=== PATIENT | male | born 1980 | race Caucasian/White ===

== ENCOUNTER 2023-11-26 01:08 | Outpatient (CLI) | payer OTHER, SELFPAY ==
--- OUTSIDE RECORDS SUMMARY | 2023-11-26 01:42 | XMS_ITS | Encounter Summary ---
Author Organization Formerly [facility] [place] [address] Care Team Providers Care Tunnel Elastic Operator Zigzag Name Role Phone Sharron Keen APRN Primary Care Provider [phone] Reason for Visit * Reason Comments Allergy Testing * Consultation (Routine) - Closed Specialty Diagnoses / Procedures Referred By Contmarianna t Referred To Contact Allergy Diagnoses anaphylaxis, allergic reaction to soy? Niecy Navarrete, BAG LOADER [address] [place] [address] [facility] [address] [place] [address] Referral ID Status Reason Start Date Expiration Date V isits Requested Visits Authorized [id number] Closed [facility] 03/03/2016 03/03/2017 1 1 Encounter Details Date Type Department Care Team (Late st Contact Info) Description 03/13/2016 4:00 PM EST [place] [address] Radha Dowling MD [facility] [address] [place] [address] Oral allergy syndrome, initial encounter; Allergic rhinitis, unspecified allergic rhinitis trigger, unspecified rhinitis seasonality; Diarrhea, unspecified type Social History Tobacco Use Types Packs/Day Years Used Date Smoking Tobacco: Never Smokeless Tobacco: Never Alcohol Use Standard Drinks/Week Comments No 0 (1 standard drink = 0.6 oz pur e alcohol) Sex and Gender Information Value Date Recorded Sex Assigned at Not on file Gender Identity Not on file Sexual Orientation Not on file documented as of this encounter Last Filed Vital Signs Vital Sign Reading Time Taken Comments Blood Pressure 123/82 03/13/2016 3:37 PM EST Pulse 75 03/13/2016 3:37 PM EST Temperature - - Respiratory Rate 19 03/13/2016 3:37 PM EST Oxygen Saturation - - Inhaled Oxygen Concentration - - Weight 60.3 kg (133 lb) 03/13/2016 3:37 PM EST Height 175.3 cm (5' 9) 03/13/2016 3:37 PM EST Body Mass Index 19.64 03/13/2016 3:37 PM EST documented in this encounter Patient Instructions * Patient Instructions* Radha Dowling MD - 03/13/2016 4:00 PM EST Allergy tests positive to orchard grass, owen grass, birch. Food tests all negative but results to shrimp and almond were borderline positive. Avoid for now and carry epipen. Recommend getting lab tests to confirm results - if negative to shrimp consider doing food challenge in the office to confirm you are not allergic. If almond negative, I suspect this is oral allergy syndrome. Oral allergy syndrome: mild form of food allergy with raw foods that cross-react with pollen. Rarely causes systemic reaction and most people can tolerate the cooked version of the food because it breaks down the allergenic protein. documented in this encounter Progress Notes * Radha Dowling MD - 03/13/2016 4:00 PM EST CC: allergies HPI: Michael Gray is a 35 y.o. male with a PMH of gastropathy presenting for evaluation of allergies at the request of Niecy Navarrete. Patient reports that he has had severe GI symptoms such as diarrhea and abdominal pain for about 1 month and has lost [address] scan was negative, and endoscopy only showed gastropathy in his stomach, per the patient. He is concerned about food allergy. He tried cutting out gluten and did not notice a difference for the first 10 days, but then started to feel better after that, but reports that he also started reflux medications (omeprazole) at the same time, which may have confounded his elimination diet. He is also concerned about soy. He reports that he had a soy-coconut breakfast bar and experienced an itchy throat and burning after eating it, and then another time had soy sauce and experienced an itchy throat and burning after eating that. The soy sauce reaction happened about 10 days ago, and it happened immediately after eating it. He has had similar symptoms, however, with bad acid reflux so is not sure if the soy sauce just gave him reflux. He did not have any rash when he ate the soy. He also admits to diarrhea and abdominal pain with shellfish 30-60 minutes after eating it, and on one occasion, felt that his throat was tight, but was not sure if it was due to anxiety. He has avoided shellfish since high school because of this reaction. Has not had a rash with shellfish. He admits to occasional mild scratchy throat with almonds when raw but no problems when they are roasted or cooked. He also has a scratchy throat with apple when it is raw but no problems with cooked apple. He has not had hives, rash, wheeze, shortness of breath, or lip swelling with any foods. He denies a history of asthma or eczema. He admits to spring seasonal allergies, characterized by dry eyes and sneezing. Review of systems is per HPI. Also admits to ocular migraines, diagnosed this February; itchy mouth; itchy throat; heartburn; reflux; nausea; abdominal pain; diarrhea; constipation; kidney stones; headache; and anxiety. ROS otherwise negative. Past Medical History Diagnosis Date ??? Gastropathy ??? Ocular migraine Past Surgical History Procedure Laterality Date ??? Pro upper gi endoscopy, biopsy N/A 03/05/2016 EGD WITH BIOPSY (WRVU 2.49) performed by Matthew Diaz MD at [facility] ENDOSCOPY Outpatient Prescriptions Marked as Taking for the 03/13/16 encounter (Office Visit) with Radha Dowling MD Medication Sig Dispense Refill ??? EPINEPHrine 0.3 mg/0.3 mL Auto-Injector Inject 0.3 mg into the muscle once. ??? omeprazole (PRILOSEC) 40 mg Capsule, Delayed Release(E.C.) Take 40 mg by mouth daily. ??? LORazepam (ATIVAN) 1 mg Tablet Take 1 mg by mouth every 6 hours as needed for Anxiety. ??? calcium carbonate (TUMS) 200 mg calcium (500 mg) Tablet, Chewable Take 1 tablet by mouth daily. ??? FAMOTIDINE/CA CARB/MAG HYDROX (PEPCID COMPLETE ORAL) Take by mouth daily as needed. Allergies Allergen Reactions ??? Shellfish Derived Anaphylaxis ??? Soy Anaphylaxis ??? Gluten Other (See Comments) GI Stress per pt Family History Problem Relation Age of Onset ??? Allergic Rhinitis Father ??? Allergic Rhinitis Sister Social History Social History ??? Marital status: Spouse name: N/A ??? Number of children: N/A ??? Years of education: N/A Occupational History ??? Not on file. Social History Main Topics ??? Smoking status: Never Smoker ??? Smokeless tobacco: Never Used ??? Alcohol use No ??? Drug use: No ??? Sexual activity: Not on file Other Topics Concern ??? 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 There is no central a/c. There is not a woodstove. The patient has seen no pests around the home. There is known mold or mildew in bathroom. The patient does not live on a farm. The patient is not exposed to farm animals. Pets: 1 cat PHYSICAL EXAM: BP 123/82 Pulse 75 Resp 19 Ht 175.3 cm (5' 9) Wt 60.3 kg (133 lb) BMI 19.64 kg/m2 Gen: AAOx3, no acute distress HEENT: Tympanic membranes clear, no lesions, erythema, or drainage. Conjunctiva not injected. Nasalpassages show pale, enlarged turbinates bilaterally. OP clear without erythema or cobblestoning. NECK: supple, no lymphadenopathy CVS: RRR, no m/r/g LUNGS: CTAB, no wheezing or rales ABD: soft, non-tender, non-distended SKIN: no rashes EXTREMITIES: warm and well-perfused, no edema SKIN TESTING: Histamine (7, 23) Saline (0, 3) Glycerine (2, 3) Orchard grass (14, 35) - pos Owen grass (18, 35) - pos Birch (18, 45) - pos Mugwort (-) Ragweed (-) Soy (-) Wheat (-) [place] (4, 9) - borderline but negative Clam (-) Crab (-) Lobster (-) Oyster (-) Scallop (-) Shrimp (3, 11) - borderline but negative Apple (-) Please see scanned document for full details on sizes of wheals and flares if not indicated above. RECORD REVIEW: Prior lab tests show that in January of 2016, he had a normal white count of 5.29; a normal hematocrit of 43.4; and a normal platelet count of 206,000. His differential was within normal limits. In February of 2016, his white count was mildly low at 4.37, and he had normal hematocrit and platelets and differential at that time, as well. He has had a normal prothrombin time, INR, and D-dimer. Urinalysis was unremarkable. Helicobacter pylori antigen in his feces was negative. CMP in January 2016 showed mildly elevated glucose of 102, mildly elevated TSH of 3.93; otherwise normal BMP. His cardiac troponins were negative in February. A report CMP actually showed no abnormalities, including normal liver function. He had a tTG-IgA that was negative and a tTG-IgG that was within normal limits. ASSESSMENT AND PLAN: 35 y.o. male with one month of GI symptoms and weight loss with allergic rhinitis concerned about food allergy. Specific food reactions include itchy throat with soy, diarrhea/abd pain and ? Throat tightness with shrimp, and scratchy throat with raw but not cooked almonds and apples. He has not hadhives, rash, wheeze, shortness of breath, or lip swelling with any foods. Allergy tests positive toorchard grass, owen grass, and birch tree and negative to foods, though almond and shrimp were borderline because they had a large flare, but the wheal was not significant. I suspect his reaction to soy, almond, and apple are due to oral allergy syndrome from cross-reactivity with pollen, since he has quite large reactions to the relevant pollens. Shrimp reaction is hard to say - isolated GI symptoms are rarely due to food allergy and he is not sure about the throat symptoms. I sent sIgE to almond and shrimp to verify negative reactions and patient requested confirming the others, too, so I will send these for peace of mind. Recommended: - avoid all problem foods for now and based on results will decide on what to reintroduce. Foods will be reintroduced one week at a time so if his GI symptoms flare up he will know the trigger. This would be an intolerance rather than an allergy - pt will carry epipen due to reported throat symptoms with shrimp. If sIgE negative to shrimp would recommend food challenge in the office due to reported possible throat symptoms. - negative sIgE with other foods is consistent with oral allergy syndrome, though it is possible tohave positive sIgE to foods with OAS, which is largely a clinical diagnosis. Essentially, in OAS, OK to eat cooked version of foods that don't cause problems and avoid raw forms. Rare for this to cause serious reactions ADDENDUM: Shrimp, lobster, crab, clam, scallop, oyster, soybean, almond, wheat IgE all negative. Apple pending at the time of note signing. Radha Dowling MD documented in this encounter Plan of Treatment Not on file documented as of this encounter Procedures Procedure Name Priority Date/Time Associated Diagnosis Comments ALLERGY SCAN 03/26/2016 12:00 AM EST LOBSTER IGE Routine 03/13/2016 5:09 PM EST Oral allergy syndrome, initial encounter ALMOND IGE Routine 03/13/2016 5:09 PM EST Oral allergy syndrome, initial encounter CLAMS IGE Routine 03/13/2016 5:09 PM EST Oral allergy syndrome, initial encounter SHRIMP IGE Routine 03/13/2016 5:09 PM EST Oral allergy syndrome, initial encounter APPLE IGE Routine 03/13/2016 5:09 PM EST Oral allergy syndrome, initial encounter WHEAT IGE Routine 03/13/2016 5:09 PM EST Oral allergy syndrome, initial encounter SOYBEAN IGE Routine 03/13/2016 5:09 PM EST Oral allergy syndrome, initial encounter SCALLOP IGE Routine 03/13/2016 5:09 PM EST Oral allergy syndrome, initial encounter OYSTER IGE Routine 03/13/2016 5:09 PM EST Oral allergy syndrome, initial encounter CRAB IGE Routine 03/13/2016 5:09 PM EST Oral allergy syndrome, initial encounter documented in this encounter Results * SCAN DOC: ALLERGY (03/26/2016 12:00 AM EST) Scanning Provider MEDIA MGR SCAN EXT O RDR/RSLT * Wheat IgE (03/13/2016 5:09 PM EST) Wheat, IgE <0.35 kU/L [facility] Comment: Reference Ranges <0.35 kU/L Class 0: ??Normal 0.35-0.69 kU/L Class 1: ??Low level of allergy, indicative of ongoing sensitization 0.70-3.49 kU/L Class 2: ??Moderate level of allergy, indicative of stronger ongoing sensitization 3.50-17.49 kU/L Class 3: ??High level of allergy, indicative of high level sensitization 17.5-49.9 kU/L Class 4: Very high level of allergy, indicative of very high level sensitization 50.0-100 kU/L Class 5: Very high level of allergy, indicative of very high level sensitization Blood specimen (specimen) 03/13/2016 5:09 PM EST 03/16/2016 8:27 AM EST Narrative Resulting Agency Comment Spec In Lab Radha Dowling MD IMMUNOLOGY ORDERABLE S [facility] [place] [address] * Apple IgE (03/13/2016 5:09 PM EST) Apple, IgE 0.54 kU/L [facility] Comment: Class 1 (Equivocal 0.35-0.69) Test Performed by: [place] [address] [employer] Boring Machine Feeder: Brad Giordano II, M.D., Ph.D. Blood specimen (specimen) 03/13/2016 5:09 PM EST 03/17/2016 8:59 AM EST Narrative Resulting Agency Comment Spec In Lab Radha Dowling MD IMMUNOLOGY ORDERABLE S Performing Organization Address City/[facility]/ZIP Co de Phone Number [facility] [place] [address] * Scallop IgE (03/13/2016 5:09 PM EST) Scallop, IgE <0.35 kU/L [facility] Comment: Reference Ranges <0.35 kU/L Class 0: ??Normal 0.35-0.69 kU/L Class 1: ??Low level of allergy, indicative of ongoing sensitization 0.70-3.49 kU/L Class 2: ??Moderate level of allergy, indicative of stronger ongoing sensitization 3.50-17.49 kU/L Class 3: ??High level of allergy, indicative of high level sensitization 17.5-49.9 kU/L Class 4: Very high level of allergy, indicative of very high level sensitization 50.0-100 kU/L Class 5: Very high level of allergy, indicative of very high level sensitization Blood specimen (specimen) 03/13/2016 5:09 PM EST 03/16/2016 8:27 AM EST Narrative Resulting Agency Comment Spec In Lab Radha Dowling MD IMMUNOLOGY ORDERABLE S Performing Organization Address City/[facility]/ZIP Co de Phone Number [facility] [place] [address] * Oyster IgE (03/13/2016 5:09 PM EST) Oyster, IgE <0.35 kU/L [facility] Comment: Reference Ranges <0.35 kU/L Class 0: ??Normal 0.35-0.69 kU/L Class 1: ??Low level of allergy, indicative of ongoing sensitization 0.70-3.49 kU/L Class 2: ??Moderate level of allergy, indicative of stronger ongoing sensitization 3.50-17.49 kU/L Class 3: ??High level of allergy, indicative of high level sensitization 17.5-49.9 kU/L Class 4: Very high level of allergy, indicative of very high level sensitization 50.0-100 kU/L Class 5: Very high level of allergy, indicative of very high level sensitization Blood specimen (specimen) 03/13/2016 5:09 PM EST 03/16/2016 8:27 AM EST Narrative Resulting Agency Comment Spec In Lab Radha Dowling MD IMMUNOLOGY ORDERABLE S Performing Organization Address [facility]/ZIP Co de Phone Number [facility] [place] [address] * Rachel IgE (03/13/2016 5:09 PM EST) Pathologist Enid Ramos, IgE <0.35 kU/L [facility] Comment: Reference Ranges <0.35 kU/L Class 0: ??Normal 0.35-0.69 kU/L Class 1: ??Low level of allergy, indicative of ongoing sensitization 0.70-3.49 kU/L Class 2: ??Moderate level of allergy, indicative of stronger ongoing sensitization 3.50-17.49 kU/L Class 3: ??High level of allergy, indicative of high level sensitization 17.5-49.9 kU/L Class 4: Very high level of allergy, indicative of very high level sensitization 50.0-100 kU/L Class 5: Very high level of allergy, indicative of very high level sensitization Blood specimen (specimen) 03/13/2016 5:09 PM EST 03/16/2016 8:27 AM EST Narrative Resulting Agency Comment Spec In Lab Radha Dowling MD IMMUNOLOGY ORDERABLE S Performing Organization Address City/[facility]/ZIP Co de Phone Number [facility] [place] [address] * Crab IgE (03/13/2016 5:09 PM EST) Crab, IgE <0.35 kU/L [facility] Comment: Reference Ranges <0.35 kU/L Class 0: ??Normal 0.35-0.69 kU/L Class 1: ??Low level of allergy, indicative of ongoing sensitization 0.70-3.49 kU/L Class 2: ??Moderate level of allergy, indicative of stronger ongoing sensitization 3.50-17.49 kU/L Class 3: ??High level of allergy, indicative of high level sensitization 17.5-49.9 kU/L Class 4: Very high level of allergy, indicative of very high level sensitization 50.0-100 kU/L Class 5: Very high level of allergy, indicative of very high level sensitization Blood specimen (specimen) 03/13/2016 5:09 PM EST 03/16/2016 8:27 AM EST Narrative Resulting Agency Comment Spec In Lab Radha Dowling MD IMMUNOLOGY ORDERABLE S [facility] [place] [phone] * Clams IgE (03/13/2016 5:09 PM EST) Pathologist [facility] Clam, IgE <0.35 kU/L [facility] Comment: Reference Ranges <0.35 kU/L Class 0: ??Normal 0.35-0.69 kU/L Class 1: ??Low level of allergy, indicative of ongoing sensitization 0.70-3.49 kU/L Class 2: ??Moderate level of allergy, indicative of stronger ongoing sensitization 3.50-17.49 kU/L Class 3: ??High level of allergy, indicative of high level sensitization 17.5-49.9 kU/L Class 4: Very high level of allergy, indicative of very high level sensitization 50.0-100 kU/L Class 5: Very high level of allergy, indicative of very high level sensitization Blood specimen (specimen) 03/13/2016 5:09 PM EST 03/16/2016 8:27 AM EST Narrative Resulting Agency Comment Spec In Lab Radha Dowling MD IMMUNOLOGY ORDERABLE S [facility] [place] [address] * Soybean IgE (03/13/2016 5:09 PM EST) Soybean, IgE <0.35 kU/L [facility] Comment: Reference Ranges <0.35 kU/L Class 0: ??Normal 0.35-0.69 kU/L Class 1: ??Low level of allergy, indicative of ongoing sensitization 0.70-3.49 kU/L Class 2: ??Moderate level of allergy, indicative of stronger ongoing sensitization 3.50-17.49 kU/L Class 3: ??High level of allergy, indicative of high level sensitization 17.5-49.9 kU/L Class 4: Very high level of allergy, indicative of very high level sensitization 50.0-100 kU/L Class 5: Very high level of allergy, indicative of very high level sensitization Blood specimen (specimen) 03/13/2016 5:09 PM EST 03/16/2016 8:27 AM EST Narrative Resulting Agency Comment Spec In Lab Radha Dowling MD IMMUNOLOGY ORDERABLE S [facility] [place] [address] * [place] IgE (03/13/2016 5:09 PM EST) [place], IgE <0.35 kU/L [facility] Comment: Reference Ranges <0.35 kU/L Class 0: ??Normal 0.35-0.69 kU/L Class 1: ??Low level of allergy, indicative of ongoing sensitization 0.70-3.49 kU/L Class 2: ??Moderate level of allergy, indicative of stronger ongoing sensitization 3.50-17.49 kU/L Class 3: ??High level of allergy, indicative of high level sensitization 17.5-49.9 kU/L Class 4: Very high level of allergy, indicative of very high level sensitization 50.0-100 kU/L Class 5: Very high level of allergy, indicative of very high level sensitization Blood specimen (specimen) 03/13/2016 5:09 PM EST 03/16/2016 8:27 AM EST Narrative Resulting Agency Comment Spec In Lab Radha Dowling MD IMMUNOLOGY ORDERABLE S Performing Organization Address City/[facility]/ZIP Co de Phone Number [facility] [place] [address] * Shrimp IgE (03/13/2016 5:09 PM EST) Shrimp, IgE <0.35 kU/L [facility] Comment: Reference Ranges <0.35 kU/L Class 0: ??Normal 0.35-0.69 kU/L Class 1: ??Low level of allergy, indicative of ongoing sensitization 0.70-3.49 kU/L Class 2: ??Moderate level of allergy, indicative of stronger ongoing sensitization 3.50-17.49 kU/L Class 3: ??High level of allergy, indicative of high level sensitization 17.5-49.9 kU/L Class 4: Very high level of allergy, indicative of very high level sensitization 50.0-100 kU/L Class 5: Very high level of allergy, indicative of very high level sensitization Blood specimen (specimen) 03/13/2016 5:09 PM EST 03/16/2016 8:27 AM EST Narrative Resulting Agency Comment Spec In Lab Radha Dowling MD IMMUNOLOGY ORDERABLE S Performing Organization Address City/[facility]/ZIP Co de Phone Number [facility] [place] [address] documented in this encounter Visit Diagnoses Diagnosis Oral allergy syndrome, initial encounter Allergic rhinitis, unspecified allergic rhinitis trigger, unspecified rhinitis seasonality Diarrhea, unspecified type documented in this encounter Care Teams Tunnel Elastic Operator Zigzag Relationship Specialty Start Date End Date Sharron Keen, BAG LOADER PCP - General Family Medicine 03/03/16 documented as of this encounter
--- OUTSIDE RECORDS SUMMARY | 2023-11-26 01:42 | XMS_ITS | Encounter Summary ---
[facility] Organization [facility] [place] [address] Care Team Providers Care Credit Control Officer Name Role Phone Sharron Keen APRN Primary Care Provider [phone] Reason for Visit * Reason Comments Skin Check Encounter Details Date Type Department Care Team (Late st Contact Info) Description 05/14/2017 3:30 PM EST Office Visit Dermatology at [address] [phone] Kyrie Gutierrez MD [address] [facility], [facility] [place] [address] Nevus Social History Tobacco Use Types Packs/Day Years Used Date Smoking Tobacco: Never Smokeless Tobacco: Never Alcohol Use Standard Drinks/Week Comments No 0 (1 standard drink = 0.6 oz pur e alcohol) Sex and Gender Information Value Date Recorded Sex Assigned at Not on file Gender Identity Not on file Sexual Orientation Not on file documented as of this encounter Progress Notes * Kyrie Gutierrez MD - 05/14/2017 3:30 PM EST Problem: 1. Skin checkup 2. Exercise-induced urticaria Michael is a 36-year-old gentleman who is noted and mole the present on his left medial knee for atleast 2 years. Recently been getting a little bit vamper centrally. He like to have this checked. He is not aware of any personal or family history of skin cancer melanoma. He does have a general skin check as well. Further he notes that if he is exercising it starts to get hot he will developed first red patchiness on his body and then actually he continues to exercise he will develop actual hiatus. His daughter starting to develop the same problem. The patient is seen in consultation today for Sharron Keen APRN Physical examination reveals a pleasant 36-year-old woman with red hair fair skin and relative paucity of of nevi. He has a benign 6 mm L4-5 millimeter junctional melanocytic nevus on the left medialknee which is light terrazas pigmentation and is developing centrally a 3 mm papule consistent with a com pound versus intradermal nevus component. This appears to be in a benign change in the patient was reassured about it. Careful examination of the patient's scalp his face his neck his chest is back his hands and forearms thighs and calves his feet is otherwise unremarkable and benign. He does have a few small junctional melanocytic nevi in the 2-3 mm diameter range on the forearms and arms bilaterally. He has no urticaria today Assessment plan: Benign skin examination 1. Patient reassured about benign skin examination 2. Reassured about this benign nevi 3. Reinforced sun with precautions use of SPF 30-45 sunscreen and wearing a broad brimmed hat when out of doors. Patient is already trying to do this. Physical urticaria, exercise induced 1. Discussed the option of cetirizine (Zyrtec), versus loratadine (Claritin), choose one and take 10 mg an hour or 2 before planned exercise/workouts in order to prevent this phenomenon. 2. Discussed the physiology/etiology of the problem. Reassured him about its overall benign nature. Cc: Sharron Keen APRN documented in this encounter Plan of Treatment Not on file documented as of this encounter Visit Diagnoses Diagnosis Nevus Benign neoplasm of skin, site unspecified documented in this encounter Care Teams Credit Control Officer Relationship Specialty Start Date End Date Sharron Keen APRN PCP - General Family Medicine 03/03/16 documented as of this encounter
--- OUTSIDE RECORDS SUMMARY | 2023-11-26 01:42 | XMS_ITS | Encounter Summary ---
Author Organization [facility] [place] [address] Care Team Providers Care Volunteer Services Supervisor Name Role Phone Sharron Keen APRN Primary Care Provider [phone] Encounter Details Date Type Department Care Team (Late st Contact Info) Description 06/24/2017 Orders [place] [address] Bowen Farmer [facility] [address] Bloated abdomen Social History Tobacco Use Types Packs/Day Years Used Date Smoking Tobacco: Never Smokeless Tobacco: Never Alcohol Use Standard Drinks/Week Comments No 0 (1 standard drink = 0.6 oz pur e alcohol) Sex and Gender Information Value Date Recorded Sex Assigned at Not on file Gender Identity Not on file Sexual Orientation Not on file documented as of this encounter Plan of Treatment Not on file documented as of this encounter Visit Diagnoses Diagnosis Bloated abdomen Flatulence, eructation, and gas pain documented in this encounter Care Teams Volunteer Services Supervisor Relationship Specialty Start Date End Date Sharron Keen APRN PCP - General Family Medicine 03/03/16 documented as of this encounter
--- OUTSIDE RECORDS SUMMARY | 2023-11-26 01:42 | XMS_ITS | Encounter Summary ---
Author Organization [facility] [place] [address] Care Team Providers Care Grader Patrol Name Role Phone Sharron Keen APRN Primary Care Provider [phone] Encounter Details Date Type Department Care Team (Late st Contact Info) Description 03/05/2016 Orders [place] [address] Matthew Diaz MD [facility] [place] [address] Abnormal celiac antibody panel Social History Tobacco Use Types Packs/Day Years Used Date Smoking Tobacco: Never Alcohol Use Standard Drinks/Week Comments No 0 (1 standard drink = 0.6 oz pur e alcohol) Sex and Gender Information Value Date Recorded Sex Assigned at Not on file Gender Identity Not on file Sexual Orientation Not on file documented as of this encounter Plan of Treatment Not on file documented as of this encounter Results * Tissue transglutaminase, IgA (03/05/2016 10:52 AM EST) TTG IgA Ab 1.5 0.1 - 10.0 u/ml [facility] Comment: Negative = <7 U/mL Equivocal = 7-10 U/mL Positive = >10 U/mL Blood specimen (specimen) 03/05/2016 10:52 AM EST 03/05/2016 1:32 PM EST Narrative Resulting Agency Comment Spec In Lab Matthew Diaz MD IMMUNOLOGY ORDERA BLES Performing Organization Address [facility] Co de Phone Number [facility] [place] [address] * (ABNORMAL) IgA (03/05/2016 10:52 AM EST) IgA 565(H) 70 - 400 mg/dL [facility] Blood specimen (specimen) 03/05/2016 10:52 AM EST 03/05/2016 10:57 AM EST Narrative Resulting Agency Comment Spec In Lab Matthew Diaz MD CHEMISTRY ORDERAB LES Performing Organization Address [facility] Co de Phone Number [facility] [place] [address] documented in this encounter Visit Diagnoses Diagnosis Abnormal celiac antibody panel Other and unspecified nonspecific immunological findings documented in this encounter Care Teams Grader Patrol Relationship Specialty Start Date End Date Sharron Keen, MAIL CARRIERS SUPERVISOR PCP - General Family Medicine 03/03/16 documented as of this encounter
--- OUTSIDE RECORDS SUMMARY | 2023-11-26 01:42 | XMS_ITS | Encounter Summary ---
Author Organization [facility] [place] [address] Care Team Providers Care Phlebotomy Specialist Name Role Phone Sharron Keen APRN Primary Care Provider [phone] Reason for Visit * Reason Comments GI Problem * Consultation (Urgent) - Closed Specialty Diagnoses / Procedures Referred By Duong dotson Referred To Contact Gastroenterology Diagnoses nausea and abdominal pain x3 weeks. workup thus far significant for elevated tissue transglutaminase igg Procedures consult Sharron Keen APRN [address] [facility] [address] [place] [address] [facility] [address] [place] [address] Referral ID Status Reason Start Date Expiration Date Visits Re quested Visits Authorized [id number] Closed 02/27/2016 02/26/2017 1 1 Encounter Details Date Type Department Care Team (Late st Contact Info) Description 07/01/2016 10:00 AM EDT Office [place] [address] Bowen Farmer APRN [facility] [place] [address] Dyspepsia Social History Tobacco Use Types Packs/Day Years [...] Sign Reading Time Taken Comments Blood Pressure 129/79 07/01/2016 10:00 AM EDT Pulse 86 07/01/2016 10:00 AM EDT Temperature - - Respiratory Rate - - Oxygen Saturation - - Inhaled Oxygen Concentration - - Weight 64.1 kg (141 lb 6.4 oz) 07/01/2016 10:00 AM EDT Height 175.3 cm (5' 9) 07/01/2016 10:00 AM EDT Body Mass Index 20.88 07/01/2016 10:00 AM EDT documented in this encounter Progress Notes * Bowen Farmer RN - 07/01/2016 10:00 AM EDT Section of Gastroenterology and Hepatology [address] [place] [address] .Michael Gray : 1980 Patient is here for further evaluation of gastrointestinal symptoms at the request of Sharron Apodaca. HPI: Pt is here for abdominal pain and nausea. Hx of gastric ulcer while in high school. Healed with protonix 40mg bid x 14 days with relief. This time tried protonix and nexium both with no relief. Now is taking Omeprazole 40mg bid for 9 weeks. His sx have improved. Prior to feeling better was unable to eat for 6 weeks and was nauseous with movement. Now he is able to eat without nausea. But still has nausea. 1-4 hours per day. No particular pattern or trigger. But was all the time. Has gained the 20 pounds he lost. But only hungry first thing inthe morning. Eats because he knows he has to eat. 02/2016 upper endoscopy: The examined esophagus was normal. ?The Z-line was regular and was found??42 cm from the ?incisors. ?Diffuse mildly erythematous mucosa without bleeding ?was found in the gastric antrum and in the prepyloric ?region of the stomach. Biopsies were taken with a ?cold forceps for histology. ?A single umbilicated lesion measuring small in ?diameter was found in the prepyloric region of the ?stomach. Biopsies were taken with a cold forceps for ?histology. ?The exam of the stomach was otherwise normal. ?Decreased folds were found in the entire duodenum. ?Biopsies for histology were taken with a cold forceps ?for for evaluation of celiac disease. ?The exam of the duodenum was otherwise normal. ? Impression: ?- Normal esophagus. ?- Z-line regular, 42 cm from the ?incisors. ?- Erythematous mucosa in the antrum ?and prepyloric region of the stomach. ?Biopsied. ?- A single lesion suspicious for ?aberrant pancreas was found in the ?stomach. Biopsied. ?- Duodenal mucosal changes seen, ?suspicious for celiac disease. ?Biopsied. Recommendation: ?- Await pathology results. ?- Check Serum IgA and TTG IgA if ?these have not been done. ?- Given high doses of sedation ?medication required with minimal ?sedation and high anxiety would ?recommend future endoscopy procedures ?with Monitored Anesthesia Care. ? Bx: Congested duodenal mucosa: - ??Duodenal mucosa, negative for diagnostic abnormality ??. B - Gastric lesion: - Antrum-type mucosa with reactive gastropathy. C - Gastric antrum and prepyloric (erythema): - ??Gastric antrum-type and body/fundic-type mucosa, negative for diagnostic ??abnormality. According to his spouse he is gassy. Tried avoiding gluten and lactose. No change in sx. No bloat or distention. No chronic nsaids. Reviewed diet. Hx of heartburn. Sx controlled with ppi bid. No dysphagia, odynophagia, vomiting, chest pain. During heightened sx he was having alternating consistency and frequency. Stools were dark. But now having regular stools daily. No blood in stool. No lower abdominal cramping or urgency. Social History Social History ??? Marital status: [...] ??? Not on file Social History Narrative Medical History: gerd Surgical History: two knee surgeries Family History: mother: gastric ulcers; Allergies Allergen Reactions ??? Shellfish Derived Anaphylaxis ??? Soy Anaphylaxis ??? Gluten Other (See Comments) GI Stress per pt Current Outpatient Prescriptions: ??? amitriptyline (ELAVIL) 25 mg Tablet, Bedtime, Disp: , Rfl: ??? ondansetron (ZOFRAN-ODT) 4 mg Tablet, Rapid Dissolve, Four times a day, as needed, Disp: , Rfl: ??? EPINEPHrine 0.3 mg/0.3 mL Auto-Injector, Inject 0.3 mg into the muscle once., Disp: , Rfl: ??? omeprazole (PRILOSEC) 40 mg Capsule, Delayed Release(E.C.), Take 40 mg by mouth 2 times daily.,Disp: , Rfl: ??? LORazepam (ATIVAN) 1 mg Tablet, Take 1 mg by mouth every 6 hours as needed for Anxiety. Reported on 07/01/2016, Disp: , Rfl: ??? calcium carbonate (TUMS) 200 mg calcium (500 mg) Tablet, Chewable, Take 1 tablet by mouth daily. Reported on 07/01/2016, Disp: , Rfl: ??? FAMOTIDINE/CA CARB/MAG HYDROX (PEPCID COMPLETE ORAL), Take by mouth daily as needed. Reported on 07/01/2016, Disp: , Rfl: Review of Systems - Negative except General: Cardiac: Resp: GI: see above : MS: Neuro: Skin: Psyche: Sleep: Endo: Impression: 1. Gerd/dyspepsia: continue with Omeprazole 40mg bid. Once sx completely resolve can try to taper as directed. Low fodmap diet; kefir. 2. We agreed pt would notify of progress via my . I spent a total of 54 minutes face to face with this patient; 39 minutes were spent counseling the patient in the medical problems described above. Sincerely, Bowen Farmer NP Section of Gastroenterology and Hepatology documented in this encounter Plan of Treatment Not on file documented as of this encounter Visit Diagnoses Diagnosis Dyspepsia Dyspepsia and other specified disorders of function of stomach documented in this encounter Care Teams Phlebotomy Specialist Relationship Specialty Start Date End Date Sharron Keen, CHILD PSYCHOMETRIST PCP - General Family Medicine 03/03/16 documented as of this encounter
--- OUTSIDE RECORDS SUMMARY | 2023-11-26 01:42 | XMS_ITS | Clinical Summary ---
Author Organization [facility] Address [facility] [place] [address] Care Team Providers Care First Cook Name Role Phone Sharron Keen APRN Primary Care Provider Allergies Active Allergy Reactions Criticality Noted Date Comments Gluten Other (See Comments) 03/05/2016 GI Stress per pt Shellfish Derived Anaphylaxis High 03/05/2016 Soy Anaphylaxis High 03/05/2016 Medications Medication Sig Dispensed Refills Start Date End Date Status FAMOTIDINE/CA CARB/MAG HYDROX (PEPCID COMPLETE ORAL) Take by mouth daily as needed. Reported on 07/01/2016 Active EPINEPHrine 0.3 mg/0.3 mL Auto-Injector Inject 0.3 mg into the muscle once. Active omeprazole (PRILOSEC) 40 mg Capsule, Delayed Release(E.C.) Take 40 mg by mouth 2 times daily. Active LORazepam (ATIVAN) 1 mg Tablet Take 1 mg by mouth every 6 hours as needed for Anxiety. Reported on 07/01/2016 Active calcium carbonate (TUMS) 200 mg calcium (500 mg) Tablet, Chewable Take 1 tablet by mouth daily. Reported on 07/01/2016 Active ondansetron (ZOFRAN-ODT) 4 mg Tablet, Rapid Dissolve Four times a day, as needed 02/26/2016 Active amitriptyline (ELAVIL) 50 mg Tablet TAKE ONE TABLET BY MOUTH AT BEDTIME 0 11/16/2016 Active venlafaxine (EFFEXOR-XR) 150 mg Capsule, Sust. Release 24 hr 05/03/2017 Active gabapentin (NEURONTIN) 300 mg Capsule Bedtime 10/30/2015 Active Active Problems No known active problems Immunizations Name Administration Dates Next Due Influenza PF, Split 01/02/2014 Family History Medical History Relation Comments Allergic Rhinitis Father Allergic Rhinitis Sister Relation Status Comments Father Sister Social History Tobacco Use Types Packs/Day Years Used Date Smoking Tobacco: Never Smokeless Tobacco: Never Alcohol Use Standard Drinks/Week Comments No 0 (1 standard drink = 0.6 oz pur e alcohol) Sex and Gender Information Value Date Recorded Sex Assigned at Not on file Gender Identity Not on file Sexual Orientation Not on file Last Filed Vital Signs Vital Sign Reading Time Taken Comments Blood Pressure 129/79 07/01/2016 10:00 AM EDT Pulse 86 07/01/2016 10:00 AM EDT Temperature - - Respiratory Rate 19 03/13/2016 3:37 PM EST Oxygen Saturation 99% 03/05/2016 10:00 AM EST Inhaled Oxygen Concentration - - Weight 64.1 kg (141 lb 6.4 oz) 07/01/2016 10:00 AM EDT Height 175.3 cm (5' 9) 07/01/2016 10:00 AM EDT Body Mass Index 20.88 07/01/2016 10:00 AM EDT Plan of Treatment Health Maintenance Due Date Last Done Comments HIV screen 2000 Hepatitis C Screening 2000 Lipid Screening 2000 Hepatitis B vaccine (0-59 yrs) (1) 2001 Tdap adult 2001 Tetanus vaccine 2001 Covid-19 Vaccine (1 - 2022-24 season) 2022 Influenza (Flu) vaccine (1 o f 1 - Influenza standard series) 11/21/2023 01/02/2014 Care Teams First Cook Relationship Specialty Start Date End Date Sharron Keen, ABATEMENT WORKER PCP - General Family Medicine 03/03/16
--- OUTSIDE RECORDS SUMMARY | 2023-11-26 01:42 | XMS_ITS | Encounter Summary ---
[place] [address] Care Team Providers Care Semiconductor Bonder Name Role Phone Sharron Keen APRN Primary Care Provider Encounter Details Date Type Department Care Team (Late st Contact Info) Description 08/23/2017 3:45 PM EDT Tech [place] [address] Karley Boyd APRN [address] [place] [address] Bloating Social History Tobacco Use Types Packs/Day Years Used Date Smoking Tobacco: Never Smokeless Tobacco: Never Alcohol Use Standard Drinks/Week Comments No 0 (1 standard drink = 0.6 oz pur e alcohol) Sex and Gender Information Value Date Recorded Sex Assigned at Not on file Gender Identity Not on file Sexual Orientation Not on file documented as of this encounter Progress Notes * Karley Boyd APRN - 08/23/2017 3:45 PM EDT Gastroenterology Breath Test Report Patient: Michael Gray Date Of : 1980 PCP: Sharron Keen APRN Referring: Bowen Farmer STUDY DATE: 08/23/2017 PROVIDER: KARLEY BOYD APRN INDICATION: Abdominal bloating Evaluate for SIBO ppmH2 ppmCH4 CO2(f) Fasting Baseline 2 2 4.0/1.52 Administer sugar: 15 mL Lactulose 90 mL H2O Sample Time ppmH2 ppmCH4 CO2(f) 1. 20 min 1 1 4.5/1.35 2. 40 min 1 1 4.1/1.48 3. 60 min 6 5 3.9/1.56 4. 80 min 6 5 3.9/1.56 5. 100 min 17 8 4.0/1.52 6. 120 min 16 8 3.9/1.56 7. 140 min 20 8 3.6/1.69 8. 160 min 2 8 3.6/1.69 9. 180 min 16 8 3.9/1.56 Interpretation: Normal breath test, negative for small intestinal bacterial overgrowth (SIBO). 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 The hydrogen production is essentially stable after the administration of lactulose until approximately 140 minutes correlating with a normal orocecal transit time. Signed, Karley Boyd APRN Gastroenterology and Hepatology [place] [id number] P: [phone] F: [phone] Copy: Bowen Keen APRN Clinical interpretation is based on the [place] consensus on breath testing published in theAmerican Journal of Gastroenterology, 2017. A rise in production of hydrogen or methane greater than 20 ppm or 10 ppm respectively from baseline levels within 90 minutes is consistent with small intestinal bacterial overgrowth. documented in this encounter Plan of Treatment Not on file documented as of this encounter Visit Diagnoses Diagnosis Bloating Flatulence, eructation, and gas pain documented in this encounter Care Teams Semiconductor Bonder Relationship Specialty Start Date End Date Sharron Keen APRN PCP - General Family Medicine 03/03/16 documented as of this encounter
--- OUTSIDE RECORDS SUMMARY | 2023-11-26 01:42 | XMS_ITS | Encounter Summary ---
[place] [address] Care Team Providers Care Food Safety Coordinator Name Role Phone Sharron Keen APRN Primary Care Provider Reason for Visit * Auth/Cert Specialty Diagnoses / Procedures Referred By Duong dotson Referred To Contact Diagnoses nausea/abdominal pain Procedures PRO UPPER GI ENDOSCOPY, DIAGNOSTIC EGD, UPPER GI ENDOSCOPY Referral ID Status Reason Start Date Expiration Date Visits Re quested Visits Authorized [id number] 1 1 Encounter Details Date Type Department Care Team (Latest Contact Info) Description 03/05/2016 10:45 AM EST Laboratory Appointment Lab [address] [place] [address] Abnormal celiac antibody panel Social History Tobacco [...] Procedure Name Priority Date/Time Associated Diagnosis Comments TISSUE TRANSGLUTAMINASE, IGA Routine 03/05/2016 10:52 AM EST Abnormal celiac antibody panel IGA Routine 03/05/2016 10:52 AM EST Abnormal celiac antibody panel documented in this encounter Results * Tissue transglutaminase, IgA (03/05/2016 10:52 AM EST) TTG IgA Ab 1.5 0.1 - 10.0 u/ml [facility] Comment: Negative = <7 U/mL Equivocal = 7-10 U/mL Positive = >10 U/mL Blood specimen (specimen) 03/05/2016 10:52 AM EST 03/05/2016 1:32 PM EST Narrative Resulting Agency Comment Spec In Lab Matthew Diaz MD IMMUNOLOGY ORDERA BLES Performing Organization Address City/[facility]/ZIP Co de Phone Number [facility] [place] [address] * (ABNORMAL) IgA (03/05/2016 10:52 AM EST) IgA 565(H) 70 - 400 mg/dL [facility] Blood specimen (specimen) 03/05/2016 10:52 AM EST 03/05/2016 10:57 AM EST Narrative Resulting Agency Comment Spec In Lab Matthew Diaz MD CHEMISTRY ORDERAB LES Performing Organization Address [facility] Co de Phone Number [facility] [place] [address] documented in this encounter Visit Diagnoses Diagnosis Abnormal celiac antibody panel Other and unspecified nonspecific immunological findings documented in this encounter Care Teams Food Safety Coordinator Relationship Specialty Start Date End Date Sharron Keen, EFFICIENCY ANALYST PCP - General Family Medicine 03/03/16 documented as of this encounter
--- OUTSIDE RECORDS SUMMARY | 2023-11-26 01:43 | XMS_ITS | Encounter Summary ---
[place] [address] Care Team Providers Care Edge Bonder Name Role Phone Sharron Keen APRN Primary Care Provider Reason for Visit * Auth/Cert Specialty Diagnoses / Procedures Referred By Duong dotson Referred To Contact Diagnoses nausea/abdominal pain Procedures PRO UPPER GI ENDOSCOPY, DIAGNOSTIC EGD, UPPER GI ENDOSCOPY Referral ID Status Reason Start Date Expiration Date Visits Re quested Visits Authorized [id number] 1 1 Encounter Details Date Type Department Care Team (Late st Contact Info) Description 03/05/2016 8:31 AM EST - 03/05/2016 10:41 AM EST Hospital Encounter [place] [address] Matthew Diaz MD [facility] [place] [address] Discharge Disposition: Home Social History Tobacco Use Types Packs/Day Years [...] Sign Reading Time Taken Comments Blood Pressure 133/77 03/05/2016 10:00 AM EST Pulse 128 03/05/2016 9:47 AM EST Temperature - - Respiratory Rate 14 03/05/2016 10:00 AM EST Oxygen Saturation 99% 03/05/2016 10:00 AM EST Inhaled Oxygen Concentration - - Weight - - Height - - Body Mass Index - - documented in this encounter Discharge Instructions * Discharge Instructions* Shayna Robert RN - 03/05/2016 9:55 AM EST UPPER GI ENDOSCOPY WHAT TO EXPECT AFTER THE PROCEDURE After the test you may feel a little more gassy or bloated than usual, this is normal. ACTIVITY Because of the sedation that you received Your judgement and reaction time are affected ?? Go home and rest quietly for the remainder of the day. You may resume your normal activities tomorrow. ?? Change from one position to the next slowly. You may lose your balance unexpectedly Be careful on stairs, as you may be unsteady on your feet. FOR THE NEXT 24 HRS ?? DO NOT DRIVE OR OPERATE ANY MACHINERY ?? DO NOT DRINK ALCOHOLIC BEVERAGES ?? DO NOT SIGN LEGAL DOCUMENTS ?? If you are a smoker: DO NOT SMOKE WHILE YOU ARE ALONE Diet ?? Start by eating small portions of foods that ordinarily will not upset your stomach. Be gentle with what you choose to start with. ?? Drink plenty of fluids ( unless otherwise told not to) Medications You may have a mild sore throat. Ice chips, popsicles, over the counter throat lozenges or spray may help numb your throat. This procedure should not cause a fever. IV SITE-- slight redness or tenderness is normal, you can use warm compresses if you get concerned.If the tenderness +/or redness increases or foul drainage and a red streak occurs, please contact your PCP immediately. WHEN SHOULD YOU CALL FOR HELP? Call 911 anytime you think that you need emergency care. For example, call if: You passed out (lost consciousness). You cough up blood. You vomit blood or what looks like coffee grounds. You pass maroon or very bloody stools. Call your healthcare provider or seek immediate medical attention if: You have trouble swallowing. You have belly pain. Your stools are black or tarlike or have streaks of blood. You are sick to your stomach or cannot keep fluids down. Watch closely for changes in your health, and be sure to contact your doctor IF Your throat still hurts after a day or two You do not get better as expected. Wednesday-Wednesday Same Day Endo [phone] [id number]-[id number] Otherwise contact [phone] and ask to speak to the hand bunch maker torsion spring coiling machine setter Follow-up care is a dumont part of your treatment and safety. Be sure to make and go to all appointments, and call your doctor if you are having problems. Instructions have been reviewed and patient expresses understanding documented in this encounter Medications at Time of Discharge Medication Sig Dispensed Refills Start Date End Date gabapentin (NEURONTIN) 300 mg Capsule Bedtime 10/30/2015 ondansetron (ZOFRAN-ODT) 4 mg Tablet, Rapid Dissolve Four times a day, as needed 02/26/2016 FAMOTIDINE/CA CARB/MAG HYDROX (PEPCID COMPLETE ORAL) Take by mouth daily as needed. Reported on 07/01/2016 amitriptyline (ELAVIL) 25 mg Tablet Bedtime 11/29/2015 05/14/2017 pantoprazole (PROTONIX) 20 mg Tablet, Delayed Release (E.C.) Take 20 mg by mouth daily. 03/13/2016 documented as of this encounter H&P Notes * Matthew Diaz MD - 03/05/2016 8:53 AM EST Patient Name: Michael Gray Patient Age: 35 y.o. Birthdate: 1980 Admit date: 03/05/2016 Attending Physician: Matthew Diaz MD Gastroenterology & Hepatology Pre-Procedure History and Physical Planned Procedure: EGD: Indication: abdominal pain and nausea abnormal TTG IGG Patient reports prior EGD as a teenager with difficulty with sedation, woke up and had nausea. He is very anxious. Medications: Reviewed in [facility] Allergies Allergen Reactions ??? Shellfish Derived Anaphylaxis ??? Soy Anaphylaxis ??? Gluten Other (See Comments) GI Stress per pt Social History/Family History: Reviewed in [facility]. No changes Exam: Vitals: 03/05/16 0849 BP: 150/82 Pulse: 82 Resp: 15 GEN: NAD, AAOX3 HEENT: NC/AT dryMM, anicteric Chest: CTAB Heart: RRR, nl s1, s2 Abdomen: normal bowel sounds, soft, non tender Assessment and Plan: Proceed with EGD: ASA Grade: ASA 1 - Normal health patient Mallampati: I (soft palate, uvula, fauces, tonsillar pillars visible) Sedation plan: Moderate Conscious sedation. We discussed his overall health, no indication for MAC.We will add Zofran and plan Moderate sedation. Risks and benefits of the procedure were discussed w.ith the patient. Consent has been signed. documented in this encounter Plan of Treatment Not on file documented as of this encounter Procedures Procedure Name Priority Date/Time Associated Diagnosis Comments SURGICAL PATHOLOGY REPORT Routine 03/05/2016 10:47 AM EST SPECIMEN TO PATHOLOGY Routine 03/05/2016 10:47 AM EST SPECIMEN TO PATHOLOGY Routine 03/05/2016 10:47 AM EST SPECIMEN TO PATHOLOGY Routine 03/05/2016 10:47 AM EST EGD WITH BIOPSY (WRVU 2.39) 03/05/2016 9:14 AM EST nausea and abdominal pain x3 weeks. workup thus far significant for elevated tissue transglutaminase igg UPPER GI ENDOSCOPY Routine 03/05/2016 8:55 AM EST documented in this encounter Results * Surgical Pathology Report (03/05/2016 10:47 AM EST) Final Diagnosis [id number] ?Location: 4T; EA12; A The signing pathologist has (i) examined the relevant preparation(s) for the specimen(s) and (ii) rendered or confirmed the diagnosis(es). . ?Surgical Pathology DIAGNOSIS A - Congested duodenal mucosa: - ??Duodenal mucosa, negative for diagnostic abnormality ??. B - Gastric lesion: - Antrum-type mucosa with reactive gastropathy. C - Gastric antrum and prepyloric (erythema): - ??Gastric antrum-type and body/fundic-typ e mucosa, negative for diagnostic abnormality. [id number] Electronically signed by: ??Mello Caisano MD Verified: ??03/09/2016 ?Pathologist CLINICAL INFORMATION Specimen Submitted: A - Congested duodenal mucosa B - Gastric lesion; suspect pancreatic rest C - Gastric antrum and prepyloric (erythema) Clinical History: Abnormal celiac serology Clinical Diagnosis: Single bites from bulb (2) and second/third portion (4) SPECIMEN PROCESSING A - Labeled/Fixativ e: Congested duodenal mucosa, formalin. Quantity/Size: Multiple, ranging from 0.3 to 0.6 cm. Tissue Description: Soft, terrazas-pink tissue. Sections/Proces sing: (T2) B - Labeled/Fixativ e: Gastric lesion: suspect pancreatic rest, formalin. Quantity/Size: Three, ranging from 0.2 cm to 0.8 cm. Tissue Description: Soft, terrazas-pink tissue. Sections/Proces sing: (T1) C - Labeled/Fixativ e: Gastric antrum and prepyloric, formalin. Quantity/Size: Four, ranging from 0.2 cm to 0.6 cm. Tissue Description: Soft, terrazas-pink tissue. Sections/Proces sing: (T1) ??dixon 03/09/2016 2:57 PM EST [facility] GI Biopsy 03/05/2016 10:4 7 AM EST 03/05/2016 10:47 AM EST GI Biopsy 03/05/2016 10:4 7 AM EST 03/05/2016 10:47 AM EST GI Biopsy 03/05/2016 10:4 7 AM EST 03/05/2016 10:47 AM EST Matthew Diaz MD PATHOLOGY/CYTOLOG Y ORDERABLES [facility] [place] [address] * Specimen to Pathology (surgical or derm) (03/05/2016 10:47 AM EST) AP Specimen 03/05/2016 10:4 7 AM EST 03/05/2016 10:47 AM EST Narrative [facility] - 03/05/2016 10:47 AM EST Specimen requisition ordered. ??Separate Pathology report to follow Matthew Diaz MD PATHOLOGY/CYTOLOG Y ORDERABLES Performing Organization Address [facility] [place] [address] * Specimen to Pathology (surgical or derm) (03/05/2016 10:47 AM EST) AP Specimen 03/05/2016 10:4 7 AM EST 03/05/2016 10:47 AM EST Narrative [facility] - 03/05/2016 10:47 AM EST Specimen requisition ordered. ??Separate Pathology report to follow Matthew Diaz MD PATHOLOGY/CYTOLOG Y ORDERABLES Performing Organization Address [facility] [place] [address] * Specimen to Pathology (surgical or derm) (03/05/2016 10:47 AM EST) AP Specimen 03/05/2016 10:4 7 AM EST 03/05/2016 10:47 AM EST Narrative [facility] - 03/05/2016 10:47 AM EST Specimen requisition ordered. ??Separate Pathology report to follow Matthew Diaz MD PATHOLOGY/CYTOLOG Y ORDERABLES Performing Organization Address [facility] [place] [address] * UPPER GI ENDOSCOPY (03/05/2016 8:55 AM EST) UPPER GI ENDOSCOPY [facility] Endoscopy Procedure Date: 03/05/2016 8:55 AM ? Patient Name: Michael Gray ? Date of : 1980 ? Age: 35 ? Order #: [id number] ? Instrument Name: [id number] ? Procedure: ? Upper GI endoscopy Indications: ? Generalized abdominal pain, Positive ? celiac serologies, Nausea Patient Profile: ? This is a 35 year old male. Refer to ? note in patient chart for ? documentation of history and physical. Providers: ? Brent Sloan, ? Love Karimi Referring MD: ?Gege Carykhalida Keen Medicines: ? Midazolam 6 mg IV, Fentanyl 250 ? micrograms IV, Diphenhydramine 50 mg ? IV, Zofran 4 mg IV, Benzocaine spray Complications: ? No immediate complications. Procedure: ? Pre-Anesthesia Assessment: ? - Prior to the procedure, a History ? and Physical was performed, and ? patient medications and allergies ? were reviewed. The patient is ? competent. The risks and benefits of ? the procedure and the sedation ? options and risks were discussed with ? the patient. All questions were ? answered and informed consent was ? obtained. Patient identification and ? proposed procedure were verified by ? the physician, the nurse and the ? outside plant technician in the pre-procedure area ? in the procedure room. Mental Status ? Examination: alert and oriented. ? Airway Examination: normal ? oropharyngeal airway and neck ? mobility. Respiratory Examination: ? clear to auscultation. CV ? Examination: normal. Prophylactic ? Antibiotics: The patient does not ? require prophylactic antibiotics. ? Prior Anticoagulants: The patient has ? taken no previous anticoagulant or ? antiplatelet agents. ASA Grade ? Assessment: I - A normal, healthy ? patient. After reviewing the risks ? and benefits, the patient was deemed ? in satisfactory condition to undergo ? the procedure. The anesthesia plan ? was to use moderate sedation / ? analgesia (conscious sedation). ? Immediately prior to administration ? of medications, the patient was ? re-assessed for adequacy to receive ? sedatives. The heart rate, ? respiratory rate, oxygen saturations, ? blood pressure, adequacy of pulmonary ? ventilation, and response to care ? were monitored throughout the ? procedure. The physical status of the ? patient was re-assessed after the ? procedure. ? The procedure, indications, benefits, ? risks and alternatives were explained ? to the patient. Specifically ? discussed were potential ? complications including, but not ? limited to, bleeding, perforation, ? infection, missing a cancer, and ? adverse medication reactions. The ? Endoscope was introduced through the ? mouth, and advanced to the third part ? of duodenum. The patient tolerated ? the procedure well. The upper GI ? endoscopy was somewhat difficult due ? to ineffective sedation. Successful ? completion of the procedure was aided ? by increasing the dose of sedation ? medication. The patient tolerated the ? procedure well. ? Findings: ? The examined esophagus was normal. ? The Z-line was regular and was found 42 cm from the ? incisors. ? Diffuse mildly erythematous mucosa without bleeding ? was found in the gastric antrum and in the prepyloric ? region of the stomach. Biopsies were taken with a ? cold forceps for histology. ? A single umbilicated lesion measuring small in ? diameter was found in the prepyloric region of the ? stomach. Biopsies were taken with a cold forceps for ? histology. ? The exam of the stomach was otherwise normal. ? Decreased folds were found in the entire duodenum. ? Biopsies for histology were taken with a cold forceps ? for for evaluation of celiac disease. ? The exam of the duodenum was otherwise normal. ? Impression: ?- Normal esophagus. ? - Z-line regular, 42 cm from the ? incisors. ? - Erythematous mucosa in the antrum ? and prepyloric region of the stomach. ? Biopsied. ? - A single lesion suspicious for ? aberrant pancreas was found in the ? stomach. Biopsied. ? - Duodenal mucosal changes seen, ? suspicious for celiac disease. ? Biopsied. Recommendation: ?- Await pathology results. ? - Check Serum IgA and TTG IgA if ? these have not been done. ? - Given high doses of sedation ? medication required with minimal ? sedation and high anxiety would ? recommend future endoscopy procedures ? with Monitored Anesthesia Care. ? Attending Participation: ? I personally performed the entire procedure. ? _ Matthew Joe 03/05/2016 9:52:04 AM Number of Addenda: 0 Note Initiated On: 03/05/2016 8:55 AM PROVATION 03/05/2016 8:55 AM EST Gege Keen MD GENERAL SURGICA L ORDERABLES PROVATION documented in this encounter Visit Diagnoses Not on filedocumented in this encounter Administered Medications Inactive Administered Medications - up to 3 most recent administrations Medication Order MAR Action Action Date Dose Rate Site lactated ringers infusion 100 mL/hr, Intravenous, CONTINUOUS, Starting on Cecilia 03/05/16 at 0900, Until Cecilia 03/05/16 at 1045, Endoscopy (Day of Procedure) New Bag 03/05/2016 9:00 AM EST 100 mL/hr 100 mL/hr documented in this encounter Active and Recently Administered Medications Times are shown in EST. Continuous Medication Order 03/03/2016 03/04/2016 03/05/2016 lactated ringers infusion 100 mL/hr, Intravenous, CONTINUOUS, Starting on Cecilia 03/05/16 at 0900, Until Cecilia 16 at 1045, Endoscopy (Day of Procedure) 0900 (New Bag - Prov ider: Manuel Little, LEVY) PRN Medication Order 03/03/2016 03/04/2016 03/05/2016 benzocaine (TOPEX) 20 % oral spray (CANCELED) ONCE PRN, Starting on Cecilia 16 at 0919, Until Cecilia 03/05/16 at 1045, Intra-Operative (Intra-Procedure) 918 (Given - Provid er: Brent Gordon RN - Comment: oral) diphenhydrAMINE (BENADRYL) injection (CANCELED) ONCE PRN, Starting on Cecilia 16 at 0918, Until Cecilia 03/05/16 at 1045, Intra-Operative (Intra-Procedure), Routine 917 (Given - Provid er: Brent Gordon RN)920 (Given - Provider: Brent Gordon RN) fentaNYL 50 mcg/mL multi-dose injection (CANCELED) ONCE PRN, Starting on Cecilia 03/05/16 at 0918, Until Cecilia 03/05/16 at 1045, Intra-Operative (Intra-Procedure), Routine 917 (Given - Provid er: Brent Gordon RN)09 (Given - Provider: Brent Gordon RN)09 (Given - Provider: Brent Gordon, RN - Comment: pt awake)0928 (Given - Provider: Brent Gordon RN - Comment: pt awake)0937 (Given - Provider: Brent Gordon RN - Comment: pt awake) midazolam (PF) (VERSED) 1 mg/mL multi-dose injection (CANCELED) ONCE PRN, Starting on Cecilia 16 at 0919, Until Cecilia 16 at 1045, Intra-Operative (Intra-Procedure), Routine 09 (Given - Provid er: Brent Gordon RN)09 (Given - Provider: Brent Gordon RN)0924 (Given - Provider: Brent Gordon RN - Comment: pt awake)0928 (Given - Provider: Brent Gordon RN - Comment: pt awake)0932 (Given - Provider: Brent Gordon, RN - Comment: pt awake)0937 (Given - Provider: Brent Gordon, RN - Comment: pt awake) ondansetron (ZOFRAN) injection 4 mg (COMPLETED) 4 mg, Intravenous, ONCE PRN, 1 dose, Starting on Cecilia 03/05/16 at 0925, Until Cecilia 03/05/16 at 0925, Nausea, Endoscopy (Intra-Procedure) 0925 (Given - Provid er: Brent Gordon RN) documented in this encounter Care Teams Edge Bonder Relationship Specialty Start Date End Date Sharron Keen APRN PCP - General Family Medicine 03/03/16 documented as of this encounter
--- OUTSIDE RECORDS SUMMARY | 2023-11-26 01:43 | XMS_ITS | Encounter Summary ---
[place] [address] Care Team Providers Care Stock Patcher Name Role Phone Sharron Keen APRN Primary Care Provider Reason for Visit * Auth/Cert Specialty Diagnoses / Procedures Referred By Duong dotson Referred To Contact Diagnoses nausea/abdominal pain Procedures PRO UPPER GI ENDOSCOPY, DIAGNOSTIC EGD, UPPER GI ENDOSCOPY Referral ID Status Reason Start Date Expiration Date Visits Re quested Visits Authorized [id number] 1 1 Encounter Details Date Type Department Care Team (Late st Contact Info) Description 03/05/2016 9:30 AM EST - 03/05/2016 10:30 AM EST Surgery [place] [address] Matthew Diaz MD [facility] [place] [address] EGD WITH BIOPSY (WRVU 2.39) Social History Tobacco Use Types Packs/Day Years [...] better as expected. Wednesday-Wednesday Same Day Endo [phone] Otherwise contact [phone] and ask to speak to the plywood layup line back feeder environmental field team member Follow-up care is a [place] part of [...] Report (03/05/2016 10:47 AM EST) Final Diagnosis [id number] ?Location: 4T; EA12; A The signing pathologist [...] diagnostic abnormality. CR-PX Electronically signed by: ??Mello Casiano MD Verified: ??03/09/2016 ?Pathologist CLINICAL INFORMATION Specimen [...] sing: (T1) ??dixon 03/09/2016 2:57 PM EST [facility] GI Biopsy 03/05/2016 10:4 7 AM EST 03/05/2016 10:47 AM EST GI Biopsy 03/05/2016 10:4 7 AM EST 03/05/2016 10:47 AM EST GI Biopsy 03/05/2016 10:4 7 AM EST 03/05/2016 10:47 AM EST Matthew Diaz MD PATHOLOGY/CYTOLOG Y ORDERABLES [facility] [place] [address] * Specimen to Pathology (surgical or derm) (03/05/2016 10:47 AM EST) AP Specimen 03/05/2016 10:4 7 AM EST 03/05/2016 10:47 AM EST Narrative [facility] - 03/05/2016 10:47 AM EST Specimen requisition ordered. ??Separate Pathology report to follow Matthew Diaz MD PATHOLOGY/CYTOLOG Y ORDERABLES Performing Organization Address [facility] [place] [address] * Specimen to Pathology (surgical or derm) (03/05/2016 10:47 AM EST) AP Specimen 03/05/2016 10:4 7 AM EST 03/05/2016 10:47 AM EST Narrative [facility] - 03/05/2016 10:47 AM EST Specimen requisition ordered. ??Separate Pathology report to follow Matthew Diaz MD PATHOLOGY/CYTOLOG Y ORDERABLES Performing Organization Address [facility] [place] [address] * Specimen to Pathology (surgical or derm) (03/05/2016 10:47 AM EST) AP Specimen 03/05/2016 10:4 7 AM EST 03/05/2016 10:47 AM EST Narrative [facility] - 03/05/2016 10:47 AM EST Specimen requisition ordered. ??Separate Pathology report to follow Matthew Diaz MD PATHOLOGY/CYTOLOG Y ORDERABLES Performing Organization Address [facility] [place] [address] * UPPER GI ENDOSCOPY (03/05/2016 8:55 AM EST) UPPER GI ENDOSCOPY [facility] Endoscopy Procedure Date: 03/05/2016 8:55 AM ? Patient Name: Michael Gray ? Date of : 1980 ? Age: 35 ? Order #: [id number] ? Instrument Name: [id number] ? Procedure: ? Upper GI endoscopy Indications: ? Generalized abdominal pain, Positive ? celiac serologies, Nausea Patient Profile: ? This is a 35 year old male. Refer to ? note in patient chart for ? documentation of history and physical. Providers: ? Brent Sloan, ? Love Karimi Referring MD: ?Gege Calll Osmani Medicines: ? Midazolam 6 mg IV, Fentanyl [...] the physician, the nurse and the ? relay technician in the pre-procedure area ? in [...] performed the entire procedure. ? _ Matthew Joe, 03/05/2016 9:52:04 AM Number of Addenda: 0 Note Initiated On: 03/05/2016 8:55 AM PROVATION 03/05/2016 8:55 AM EST Gege Keen MD GENERAL SURGICA L ORDERABLES PROVATION documented in this encounter Visit Diagnoses Not on filedocumented in this encounter Administered Medications Inactive Administered Medications - up to 3 most recent administrations Medication Order MAR Action Action Date Dose Rate Site benzocaine (TOPEX) 20 % oral spray ONCE PRN, Starting on Wed03/05/16 at 0919, Until Wed03/05/16 at 1045, Intra-Operative (Intra-Procedure) Given 03/05/2016 9:19 AM EST 1 each diphenhydrAMINE (BENADRYL) injection ONCE PRN, Starting on Wed03/05/16 at 0918, Until Cecilia 03/05/16 at 1045, Intra-Operative (Intra-Procedure), Routine Given 03/05/2016 9:21 AM EST 25 mg Right Arm Given 03/05/2016 9:18 AM EST 25 mg Ri ght Arm fentaNYL 50 mcg/mL multi-dose injection ONCE PRN, Starting on Cecilia 03/05/16 at 0918, Until Cecilia 03/05/16 at 1045, Intra-Operative (Intra-Procedure), Routine Given 03/05/2016 9:37 AM EST 50 mcg Right Arm Given 03/05/2016 9:28 AM EST 50 mcg Ri ght Arm Given 03/05/2016 9:24 AM EST 50 mcg Ri ght Arm lactated ringers infusion 100 mL/hr, Intravenous, CONTINUOUS, Starting on Cecilia 03/05/16 at 0900, Until Cecilia 03/05/16 at 1045, Endoscopy (Day of Procedure) New Bag 03/05/2016 9:00 AM EST 100 mL/hr 100 mL/hr midazolam (PF) (VERSED) 1 mg/mL multi-dose injection ONCE PRN, Starting on Cecilia 03/05/16 at 0919, Until Cecilia 03/05/16 at 1045, Intra-Operative (Intra-Procedure), Routine Given 03/05/2016 9:37 AM EST 1 mg Right Arm Given 03/05/2016 9:32 AM EST 1 mg Ri ght Arm Given 03/05/2016 9:28 AM EST 1 mg Ri ght Arm ondansetron (ZOFRAN) injection 4 mg 4 mg, Intravenous, ONCE PRN, 1 dose, Starting on Cecilia 03/05/16 at 0925, Until Cecilia 03/05/16 at 0925, Nausea, Endoscopy (Intra-Procedure) Given 03/05/2016 9:25 AM EST 4 mg Right Arm documented in this encounter Active and Recently Administered Medications Times are shown in EST. Continuous Medication Order 03/03/2016 03/04/2016 03/05/2016 lactated ringers infusion 100 mL/hr, Intravenous, CONTINUOUS, Starting on Cecilia 03/05/16 at 0900, Until Cecilia 16 at 1045, Endoscopy (Day of Procedure) 0900 (New Bag - Prov ider: Manuel B Little, RN) PRN Medication Order 03/03/2016 03/04/2016 03/05/2016 benzocaine (TOPEX) 20 % oral spray (CANCELED) ONCE PRN, Starting on Cecilia 16 at 0919, Until Cecilia 03/05/16 at 1045, Intra-Operative (Intra-Procedure) 09 (Given - Provid er: Brent Gordon, RN - Comment: oral) diphenhydrAMINE (BENADRYL) injection (CANCELED) ONCE PRN, Starting on Cecilia 03/05/16 at 0918, Until Cecilia 03/05/16 at 1045, Intra-Operative (Intra-Procedure), Routine 917 (Given - Provid er: Brent Gordon, RN)09 (Given - Provider: Brent Gordon RN) fentaNYL 50 mcg/mL multi-dose injection (CANCELED) ONCE PRN, Starting on Cecilia 16 at 0918, Until Cecilia 03/05/16 at 1045, Intra-Operative (Intra-Procedure), Routine 09 (Given - Provid er: rBent Gordon, RN)09 (Given - Provider: Brent Gordon, RN)0924 (Given - Provider: Brent Gordon, RN - Comment: pt awake)0928 (Given - Provider: Brent Gordon, RN - Comment: pt awake)0937 (Given - Provider: Brent Gordon, RN - Comment: pt awake) midazolam (PF) (VERSED) 1 mg/mL multi-dose injection (CANCELED) ONCE PRN, Starting on Cecilia 03/05/16 at 0919, Until Cecilia 03/05/16 at 1045, Intra-Operative (Intra-Procedure), Routine 09 (Given - Provid er: Brent Gordon, RN)09 (Given - Provider: Brent Gordon, RN)0924 (Given - Provider: Brent Gordon, RN - Comment: pt awake)0928 (Given - Provider: Brent Gordon, RN - Comment: pt awake)0932 (Given - [...] RN) documented in this encounter Care Teams Stock Patcher Relationship Specialty Start Date End Date Sharron Keen, [employer] PCP - General Family Medicine 03/03/16 documented as of this encounter
[2023-11-26 08:23] LABS: Hemoglobin A1C 5.1 % (<5.7)
[2023-11-26 09:03] LABS: Anion Gap 6.6 mmol/L (3-11); BUN 9 mg/dL (7-18); CO2 31.4 mmol/L (21.0-32.0); CREATININE 0.7 mg/dL (0.70-1.30); Calcium 9.1 mg/dL (8.5-10.1); Calculated LDL 146 mg/dL (<100); Chloride 101 mmol/L (98-107); Cholesterol 213 mg/dL (<200); Estimated GFR 119.46 (mL/min/1.73m2); Glucose 99 mg/dL (74-106); HDL Cholesterol 60 mg/dL (40-60); Potassium 4.4 mmol/L (3.5-5.1); Sodium 139 mmol/L (136-145); Triglyceride 37 mg/dL (<150)
== END 2023-11-26 01:09 | disposition home or self-care (01) ==
PROVIDERS: PCP Nurse Practitioner Family; Visit Provider Nurse Practitioner Family
DX: Z00.00 Encounter for general adult medical examination without abnormal findings (principal); Z51.81 Encounter for therapeutic drug level monitoring
CPT/HCPCS: 36415; 80048; 80061; 83036

== ENCOUNTER 2024-02-22 14:06 | Outpatient (CLI) | payer OTHER, SELFPAY ==
--- NOTE | 2024-02-22 13:58 | DI.RAD_ITS ---
Exam(s) XR TOE RT GREAT EXAM: XR TOE RT GREAT CLINICAL HISTORY: pain, limited ROM, M79.676; injury, T14.90XA. TECHNIQUE: 2D digital imaging was performed. COMPARISON: No exams were available for comparison FINDINGS: BONES: There is a nondisplaced fracture extending in a vertical orientation through the distal half of the proximal phalanx of the great toe. There is minimal step-off at the articular surface. No ad ditional fractures are identified.. No bony destructive lesion is seen. JOINTS: No dislocation present. SOFT TISSUE: Swelling of great toe. IMPRESSION: Nondisplaced intra-articular fracture of the proximal phalanx of the great toe. DATA REPOSITORY: RADIATION DOSE DELIVERED:
== END 2024-02-22 14:26 ==
LOC: DI 14:07
PROVIDERS: PCP Nurse Practitioner Family; Visit Provider Nurse Practitioner
DX: S92.414A Nondisplaced fracture of proximal phalanx of right great toe, initial encounter for closed fracture (principal); T14.90XA Injury, unspecified, initial encounter; X58.XXXA Exposure to other specified factors, initial encounter
CPT/HCPCS: 73660

== ENCOUNTER 2024-05-15 03:15 | Outpatient (CLI) | payer OTHER, SELFPAY ==
[2024-05-15 14:00] LABS: Abs Immature Grans 0.01 10^3/uL (0.0-0.06); Absolute Basophil Count 0.06 10^3/uL (0.0-0.2); Absolute Eosinophil Count 0.13 10^3/uL (0.0-0.7); Absolute Monocyte Count 0.41 10^3/uL (0.1-0.8); Absolute Neutrophil Count 2.32 10^3/uL (1.2-6.7); Basophils % 1.5 %; Eosinophils % 3.2 %; HCT 41.9 % (40.0-50.0); HGB 14.6 g/dL (13.5-17.5); Immature Grans % 0.2 %; Lymphocytes % 27.3 %; MCHC 34.8 % (32.0-36.0); MCV 95 fL (80-95); MPV 11.5 fL (8.0-11.0); Monocytes % 10.2 %; Neutrophils % 57.6 %; Platelet Count 193 10^3/uL (130-400); RBC 4.42 10^6/uL (4.36-5.78); RDW 12.1 % (11.8-14.1); RDW-SD 42.7 fL; WBC 4.03 10^3/uL (4.4-10.8)
[2024-05-15 14:58] LABS: ALT 43 U/L (16-63); AST 26 U/L (15-37); Alkaline Phosphatase 81 U/L (46-116); Bilirubin, Direct 0.1 mg/dL (0.0-0.2); Bilirubin, Total 0.27 mg/dL (0.2-1.0); TSH 2.79 uIU/mL (0.36-3.74); Total Protein 8.1 g/dL (6.4-8.2)
[2024-05-15 15:31] LABS: Vitamin D 25 Total 17.4 ng/mL (30-100)
== END 2024-05-15 03:16 | disposition home or self-care (01) ==
PROVIDERS: PCP Nurse Practitioner Family; Visit Provider Registered Nurse
DX: F33.1 Major depressive disorder, recurrent, moderate (principal)
CPT/HCPCS: 36415; 80076; 82306; 84439; 84443; 85025

== ENCOUNTER 2024-09-20 02:31 | Outpatient (CLI) | payer OTHER, SELFPAY ==
--- NOTE | 2024-09-20 12:51 | DI.RAD_ITS ---
Exam(s) XR TOE RT GREAT EXAM: XR TOE RT GREAT CLINICAL HISTORY: 6 mos ago- fx, please compare xrays,f/u fx,s92.834b. TECHNIQUE: 2D digital imaging was performed. COMPARISON: CR XR TOE RT GREAT from 02/22/2024 FINDINGS: BONES: The previously noted fracture line is no longer visible. There is minimal deformity at the distal articular surface at the proximal phalanx. No bony destructive lesion is seen. JOINTS: No dislocation present. SOFT TISSUE: Normal. IMPRESSION: Previously noted fracture of the proximal phalanx of the great toe has healed. DATA REPOSITORY: RADIATION DOSE DELIVERED:
== END 2024-09-20 02:51 ==
LOC: DI 02:32
PROVIDERS: PCP Nurse Practitioner Family; Visit Provider Nurse Practitioner Family
DX: S92.414D Nondisplaced fracture of proximal phalanx of right great toe, subsequent encounter for fracture with routine healing (principal); X58.XXXD Exposure to other specified factors, subsequent encounter
CPT/HCPCS: 73660

== ENCOUNTER 2024-09-20 04:27 | Outpatient (CLI) | payer OTHER, SELFPAY ==
[2024-09-20 10:19] LABS: Anion Gap 10.5 mmol/L (3-11); BUN 10 mg/dL (7-18); CO2 29.5 mmol/L (21.0-32.0); Calcium 9.3 mg/dL (8.5-10.1); Chloride 100 mmol/L (98-107); Estimated GFR 118.72 (mL/min/1.73m2); Glucose 103 mg/dL (74-106); Potassium 4.2 mmol/L (3.5-5.1); Sodium 140 mmol/L (136-145)
[2024-09-20 10:39] LABS: Calculated LDL 150 mg/dL (<100); Cholesterol 231 mg/dL (<200); HDL Cholesterol 55 mg/dL (>or=40); Triglyceride 131 mg/dL (<150)
== END 2024-09-20 04:28 | disposition home or self-care (01) ==
LOC: LBO 04:27
PROVIDERS: PCP Nurse Practitioner Family; Referring Provider Nurse Practitioner Family; Visit Provider Nurse Practitioner Family
DX: R39.11 Hesitancy of micturition (principal); Z00.00 Encounter for general adult medical examination without abnormal findings
CPT/HCPCS: 36415; 80048; 80061; 82947

== ENCOUNTER 2024-12-27 01:09 | Outpatient (CLI) | payer OTHER, SELFPAY ==
[2024-12-27 08:17] LABS: Glucose 101 mg/dL (74-106)
[2024-12-27 17:10] LABS: Lab Add On Test DONE
[2024-12-27 17:24] LABS: LDL CHOLESTEROL 130 mg/dL (<100)
== END 2024-12-27 01:10 | disposition home or self-care (01) ==
LOC: LBO 01:10
PROVIDERS: PCP Nurse Practitioner Family; Referring Provider Nurse Practitioner Family; Visit Provider Nurse Practitioner Family
DX: Z00.00 Encounter for general adult medical examination without abnormal findings (principal); E78.5 Hyperlipidemia, unspecified
CPT/HCPCS: 36415; 82947; 83721